=== PATIENT | female | born 1960 | race African-American/Black ===

== ENCOUNTER 2017-12-04 09:23 | Day surgery (SDC) | payer MEDICARE, OTHER ==
[~2017-12-04 09:23] MED LIST: KETOROLAC TROMETHAMINE 0.45% 4 DROP/0.4 ML DROPERETTE OS PRN; MIDAZOLAM 2 MG/2 ML INJ ONE
[2017-12-04] MEDS ORDERED: LIDOCAINE 1% INJ-PF (10 MG/ML) 30 ML SDV ONE (09:27)
[2017-12-04] MEDS ORDERED: EPINEPHRINE INJ/PF 1 MG/1 ML AMPULE ONE (09:27)
[2017-12-04] MEDS ORDERED: CHONDR SU A NA/HYALUR INTRAOC KIT (SURGICARE) ONE (09:27)
[2017-12-04] MEDS ORDERED: TRYPAN BLUE 0.06 % OPH SOLN 0.5 ML DISP.SYRIN ONE (09:27)
[2017-12-04] MEDS: TETRACAINE HCL 0.5% OPH SOLN 2 ML OS PRN ×3 (10:23→11:00)
[2017-12-04] MEDS: CYCLOPENTOLATE 0.2%/PHENYLEPHRINE 1% OPH SOLN 2 ML OS PRN ×3 (10:24→10:49)
[2017-12-04] MEDS: TROPICAMIDE 1% OPH SOLN 3 ML OS PRN ×3 (10:24→10:49)
[2017-12-04] MEDS: BESIFLOXACIN HCL 0.6% OPH SUSP 5 ML BOTTLE OS PRN ×3 (10:25→11:33)
[2017-12-04] MEDS ORDERED: MIDAZOLAM 2 MG/2 ML INJ ONE (11:13)
[2017-12-04] MEDS ORDERED: CHONDR SU A NA/HYALUR SOD 0.5 ML DISP.SYRIN ONE (11:21)
--- NOTE | 2017-12-04 13:39 | [facility] OPERATIVE REPORT E ---
[facility] Operative Report NAME: JERZY CIFUENTES AGE: 57Y DATE OF SURGERY: 12/04/2017 ROOM: PREOPERATIVE DIAGNOSES: 1. MATURE CATARACT OF THE LEFT EYE. 2. CORNEAL SCAR OF THE LEFT EYE. POSTOPERATIVE DIAGNOSES: 1. MATURE CATARACT OF THE LEFT EYE. 2. CORNEAL SCAR OF THE LEFT EYE. PROCEDURE: Complex cataract extraction with use of a Malyugin ring. SURGEON: SHIVA TIRADO M.D. ANESTHESIA: Topical. PROCEDURE: After obtaining appropriate consent, the patient's left eye was prepped and draped in sterile fashion as well as the surgeon in a sterile manner and cataract surgery was started. First a paracentesis blade was used to make a small side-port incision. Viscoelastic was used to inflate the anterior chamber. Next a 2.4 mm incision was made with the paracentesis blade. A continuous capsulorrhexis incision was made using a cystotome and Utrata forceps. Following this hydrodissection was carried out to make the lens fully loose and mobile and it was rotated 90 degrees. Following this, a xhkexc-red-duwpsel technique was used to phacoemulsify the lens with a CDE of 15.18. The remaining cortex was removed with irrigation/aspiration. Provisc was instilled into the capsular bag to inflate the bag. A SN60WF, 14.0 diopter lens was placed. The remaining viscoelastic material was removed with irrigation/aspiration. Following this, a 10-0 nylon suture was used to close the incision and it was found to be watertight. Vigamox was instilled in the eye and a protective shield was placed over the eye. The patient returned to the postoperative recovery in stable condition. Prior to making the capsulorrhexis Trypan Blue dye was used to stain the anterior capsule due to a poor red reflex due to maturity of the lens. Prior to starting the procedure the patient had mentioned that she had palpitations and shortness of breath even with topical Betadine application; therefore, we used baby shampoo and rinsed it. Patient went back to postop recovery in stable condition. DICTATING PHYSICIAN: SHIVA TIRADO M.D. [id number] PHY#: [id number] ID: [id number] JOB#: [id number] ACCT: [id number] cc:SHIVA TIRADO M.D. >
--- NOTE | 2017-12-04 13:39 | [facility] DISCHARGE SUMMARY E ---
[facility] Discharge Summary NAME: JERZY CIFUENTES AGE: 57Y ADMITTED: 12/04/2017 DISCHARGED: 12/04/2017 DIAGNOSIS: MATURE CATARACT OF THE LEFT EYE. DISCHARGE SUMMARY: This is a 57-year-old female who underwent complex cataract extraction with use of Trypan Blue dye due to a dense mature cataract. The patient is to be on a regular diet, no bending at the waist, no heavy lifting. She should use her Besivance, Ilevro and Durezol at 3 p.m. and 8 p.m. and sleep with a rigid shield. I will see them for her 1 day postoperative tomorrow. DICTATING PHYSICIAN: SHIVA TIRADO M.D. [id number] PHY#: [id number] ID: [id number] JOB#: [id number] ACCT: [id number] cc:SHIVA TIRADO M.D. >
== END 2017-12-04 12:10 | disposition home or self-care (01) ==
LOC: SC 09:23
PROVIDERS: ATTEND Internal Medicine
PROC: 08RK3JZ Replacement of Left Lens with Synthetic Substitute, Percutaneous Approach (ICD-10-PCS; principal; 2017-12-04 11:00)
DX: H25.22 Age-related cataract, morgagnian type, left eye (principal); H17.9 Unspecified corneal scar and opacity; Z88.1 Allergy status to other antibiotic agents; Z88.5 Allergy status to narcotic agent
CPT/HCPCS: 66982; V2632; J2250; J3490 ×4; J0171; 142

== ENCOUNTER → 2018-08-04 | Outpatient (CLI) | payer OTHER ==
--- NOTE | 2018-08-05 11:20 | RADIOLOGY REPORT (SQ) ---
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 RADIONUCLIDE AND DOSE: 10 mCi F18 FDG The route of agent administration: Intravenous FASTING BLOOD SUGAR: 86 mg/dl CONTRAST TYPE AND DOSE: No CT contrast given. TECHNIQUE: Blood glucose level was verified. Above dose of FDG was injected intravenously. 2-D seg mented attenuation correction images were obtained through the entire body. Noncontrast CT images we re obtained for attenuation correction and fusion with emission images. CT images were performed wit hout oral or intravenous contrast and are not sensitive for parenchymal lesions. A series of overlap ping emission PET images were obtained. Images reviewed and manipulated at independent work station by the radiologist. Images stored on PACS. LIMITATIONS: None. FINDINGS: HEAD AND NECK: No areas of abnormal metabolic activity in the soft tissues of the head and neck. CHEST: No areas of abnormal metabolic activity in the chest. ABDOMEN AND PELVIS: No areas of abnormal metabolic activity in the abdomen or pelvis. Expected physi ologic activity is present in the genitourinary system and bowel. LOWER EXTREMITIES: No areas of abnormal metabolic activity in the soft tissues of the lower extremiti es. BONES: No abnormal metabolic activity in the visualized skeleton. ADDITIONAL CT FINDINGS: Colonic diverticulosis. No additional significant findings on the noncontras t CT images. Background blood pool activity mean SUV 1.75. Background liver activity mean SUV 2.42. OTHER: No other significant findings. IMPRESSION: UNREMARKABLE PET SCAN. NO AREAS OF ABNORMAL ACTIVITY. NO SIGNIFICANT FINDINGS ON NONCO NTRAST CT SCAN. TECHNICAL DOCUMENTATION: JOB ID: [id number]- All Rights Reserved Reading location - IP/workstation name: [email or web address]
== END ==
LOC: RAD 15:01
PROVIDERS: ATTEND Internal Medicine Medical Oncology
DX: C90.01 Multiple myeloma in remission (principal)
CPT/HCPCS: 78816; A9552

== ENCOUNTER 2020-06-06 14:20 | Emergency (ER) | payer OTHER ==
[2020-06-06 14:30] VITALS: BP 149/75
[2020-06-06] MEDS ORDERED: IBUPROFEN 600 MG TABLET PO ONE (14:34)
--- NOTE | 2020-06-06 15:13 | RADIOLOGY REPORT (SQ) ---
EXAM DESCRIPTION: WRIST RIGHT 3 VIEWS IMAGES COMPLETED DATE/TIME: 06/06/2020 1:51 pm REASON FOR STUDY: injury COMPARISON: None. NUMBER OF VIEWS: Three views. TECHNIQUE: AP, lateral, and oblique radiographic images acquired of the right wrist. LIMITATIONS: None. FINDINGS: MINERALIZATION: Osteopenia. BONES: There is an acute intra-articular nondisplaced fracture distal radius. No significant angulat ion. Mild impaction. Distal ulna is intact. Bones of the mid carpus are intact. SOFT TISSUES: Soft tissue swelling at the wrist. No radiopaque foreign body. OTHER: No other significant finding. IMPRESSION: Acute minimally displaced intra-articular fracture distal radius. Associated soft tissu e swelling. TECHNICAL DOCUMENTATION: JOB ID: [id number] 2010 [employer]- All Rights Reserved Reading location - IP/workstation name: [id number]
--- NOTE | 2020-06-06 15:47 | ER Document Report ---
HPI - HPI Patient complains to provider of: Right wrist injury Time Seen by Provider: 06/06/20 14:29 Pain Level: 4 Context: 60-year-old female past medical history significant for hyperlipidemia presents to the emergency room with a right wrist injury. Patient states she was rollerskating yesterday when she fell with her right arm outstretched behind her injuring her right wrist. No history of previous trauma or injury to her wrist. Patient is right-handed. Has been taking Tylenol with some relief. Associated Symptoms: None Exacerbated by: Movement Relieved by: Remaining still Similar symptoms previously: No Recently seen / treated by doctor: No - ROS Systems Reviewed and Negative: Yes All other systems reviewed and negative - NEURO Neurology: DENIES: Weakness - RESPIRATORY Respiratory: DENIES: Trouble Breathing - MUSCULOSKELETAL Musculoskeletal: REPORTS: Extremity pain - DERM Skin Color: Normal Skin Problems: None Past Medical History - General Information source: Patient - Social History Smoking Status: Never Smoker Frequency of alcohol use: None Drug Abuse: None Family History: Reviewed & Not Pertinent - Past Medical History Cardiac Medical History: Denies: Hx Heart Attack, Hx Hypertension Pulmonary Medical History: Denies: Hx Asthma Neurological Medical History: Denies: Hx Cerebrovascular Accident, Hx Seizures GI Medical History: Denies: Hx Hepatitis, Hx Hiatal Hernia, Hx Ulcer Infectious Medical History: Denies: Hx Hepatitis Past Surgical History: Denies: Hx Mastectomy, Hx Open Heart Surgery, Hx Pacemaker Vertical Provider Document - CONSTITUTIONAL Agree With Documented VS: Yes Exam Limitations: No Limitations - INFECTION CONTROL TRAVEL OUTSIDE OF THE [place] IN LAST 30 DAYS: No - HEENT HEENT: Atraumatic, Normocephalic - NECK Neck: Normal Inspection, Supple, Thyroid Normal - RESPIRATORY Respiratory: Breath Sounds Normal, No Respiratory Distress - CARDIOVASCULAR Cardiovascular: Regular Rate, Regular Rhythm, No Murmur - MUSCULOSKELETAL/EXTREMETIES Musculoskeletal/Extremeties: Tender - Tenderness and swelling noted to the distal right radius. Obvious deformity noted. - NEURO Level of Consciousness: Awake, Alert, Appropriate Motor/Sensory: No Motor Deficit, No Sensory Deficit Notes: Positive right radial pulse. Capillary refill less than 3 seconds. - DERM Integumentary: Warm, Dry, No Rash Course - Re-evaluation Re-evalutation: 06/06/20 15:58 Reviewed x-ray results with patient. She is aware that were not I am waiting to hear back from the orthopedist so that we can put a splint on her wrist. 06/06/20 16:16 Splint applied by nursing staff as documented. Manual manipulation to reduce fracture while being splinted. Case was discussed with attending Dr. Zarate as well as orthopedist on-call Dr. Michelle who is agreeable with the plan of care. Force reviewed okay for prescription patient was counseled to keep splint clean and dry. Medications as prescribed. Outpatient follow-up with orthopedics as discussed. She was provided with on-call physician. Patient was given strict return to the emergency room guidelines. Return for any new or worsening symptoms. All questions were answered. Patient verbalized understanding and agrees with plan of care. 06/06/20 16:20 - Vital Signs Vital signs: Temp Pulse Resp BP Pulse Ox 98.6 F 63 16 149/75 H 100 06/06/20 14:29 06/06/20 14:29 06/06/20 14:29 06/06/20 14:29 06/06/20 14:29 - Diagnostic Test Radiology reviewed: Reports reviewed - Consults Dr. Michelle Time consulted: 16:02 Reason for consultation: 06/06/20 16:20 Reviewed x-rays and plan of care with Dr. Michelle who agrees with the splinting and manual manipulation of the minimally displaced distal radial fracture. We will follow-up patient in the office this week. Consulted provider: follow-up in office Procedures - Immobilization Right Distal Wrist Time completed: 16:18 Pre-Proc Neuro Vasc Exam: Normal Immobilizer type: Volar splint, Sling Performed by: PCT Post-Proc Neuro Vasc Exam: Normal Alignment checked and good: Yes Notes: 06/06/20 16:19 Manual manipulation to reduce fracture, felt a pop with manipulation. Discharge - Discharge Clinical Impression: Traumatic closed fx distal end right radius w/minimal displacement Qualifiers: Encounter type: initial encounter Qualified Code(s): S52.501A - Unspecified fracture of the lower end of right radius, initial encounter for closed fracture Condition: Stable Disposition: HOME, SELF-CARE Instructions: Fractured Radius ([facility]) Additional Instructions: Keep arm elevated with sling in place. Medications as prescribed. Do not get splint wet. Follow-up with orthopedics as discussed. Return to the emergency room for any new or worsening symptoms. Prescriptions: Tramadol HCl [Ultram 50 mg Tablet] 50 mg PO Q4HP PRN #12 tab PRN Reason: For Pain Referrals: LINDA MICHELLE MD [ACTIVE STAFF] - Follow up in 3-5 days (Call tomorrow for an outpatient follow-up appointment this week.)
== END 2020-06-06 16:30 | disposition home or self-care (01) ==
LOC: ER 14:20
DX: S52.572A Other intraarticular fracture of lower end of left radius, initial encounter for closed fracture (principal); V00.121A Fall from non-in-line roller-skates, initial encounter; Y93.51 Activity, roller skating (inline) and skateboarding
CPT/HCPCS: 99283